=== PATIENT | male | born 1990 | race African-American/Black ===

== ENCOUNTER 2017-09-10 07:03 | Emergency (ER) | payer BC ==
[2017-09-10] MEDS: FAMOTIDINE 20 MG TABLET. PO (07:47)
== END 2017-09-10 08:22 | disposition home or self-care (01) ==
LOC: ER 07:03
DX: K21.9 Gastro-esophageal reflux disease without esophagitis (principal); F12.10 Cannabis abuse, uncomplicated
CPT/HCPCS: 71046; 93005; 99284-25

== ENCOUNTER 2019-09-20 07:30 | Emergency (ER) | payer SELFPAY ==
[2017-09-10 08:04] VITALS: BP 119/65
[~2019-09-20 07:30] MED LIST: OMEP20TA8 PO
--- NOTE | 2019-09-20 11:28 | RAD ---
PORTABLE CHEST 1V History: Left-sided chest pain. Comparison: September 10, 2017 Findings: Minimal left basilar linear atelectasis. No consolidation or pleural effusion. Normal heart size. No pneumothorax. Impression: 1. No acute cardiopulmonary process. Electronically signed by: Sabas Reyna DO (09/20/2019 11:25 AM) [id number]
== END 2019-09-20 08:35 | disposition home or self-care (01) ==
LOC: ER 07:30
DX: R09.1 Pleurisy (principal); R09.81 Nasal congestion; R11.10 Vomiting, unspecified
CPT/HCPCS: 71045; 99283